=== PATIENT | female | born 1975 | race African-American/Black ===

== ENCOUNTER 2020-02-17 14:46 | Emergency (ER) | payer SELFPAY ==
--- NOTE | ~2020-02-17 | XR_ITS ---
XR wrist RT min 3V 02/17/2020 15:02 INDICATION: Status post fall. Right wrist and navicular pain. PROCEDURE: 4 views right wrist COMPARISON: No prior studies for comparison. FINDINGS: Fracture, dislocation or subluxation is not identified. The soft tissues appear within norm al limits. No foreign bodies are identified. IMPRESSION: 1: NO ACUTE BONE OR JOINT ABNORMALITY IDENTIFIED. Reviewed, dictated and finalized at location A.
[2020-02-17 14:49] VITALS: BP 154/99; PULSE 84; RESP 18; TEMP 36.4; O2SAT 100
--- NOTE | 2020-02-17 15:04 | ED.GENADULT ---
HPI - General Adult General Chief complaint: Extremity Injury, Upper Stated complaint: right wrist pain Time Seen by Provider: 02/17/20 14:48 Source: patient Mode of arrival: ambulatory Limitations: no limitations History of Present Illness HPI narrative: Patient is a 44-year-old female who presents to emergency department for evaluation of right wrist injury that occurred last night patient fell onto an outstretched right wrist has since had moderate aching pain of the wrist joint worse with activity and movement patient denies other injuries or complaints presents with Spencer wrap in place Related Data Allergies Allergy/AdvReac Type Severity Reaction Status Date / Time No Known Allergies Allergy Verified 02/17/20 14:53 Review of Systems Review of Systems: Narrative: CONSTITUTIONAL: Denies fever, chills, or sweats. SKIN: Denies bruising or swelling MUSCULOSKELETAL: Denies back pain, joint pain, or myalgia. NEUROLOGIC: Denies numbness, or weakness. PMFSH Social History Social History Gender identity (if verbalized by the patient): Female Exam Narrative: Exam Narrative: GENERAL: Well-appearing, well-nourished, and in no acute distress. HEAD: Normocephalic, atraumatic. EYES: PERRLA and EOMI. ENT: Nares clear, no rhinorrhea or epistaxis. Mucous membranes moist. EXTREMITIES: Normal range of motion. No edema. Tenderness of the right wrist joint no deformity noted SKIN: Warm, dry, no rash. NEURO: No focal deficits. Alert and oriented x3. Cranial nerves II through XII grossly intact. Neurovascularly intact PSYCH: Normal mood and affect. Course Course Emergency Course: Patient in the room in no distress aware of case findings treatment plan and diagnosis agreeing to follow-up as direct Vital Signs Vital signs: Vital Signs Temperature 97.6 F 02/17/20 14:49 Pulse Rate 84 02/17/20 14:49 Respiratory Rate 18 02/17/20 14:49 Blood Pressure 154/99 H 02/17/20 14:49 Pulse Oximetry 100 02/17/20 14:49 Temperature 97.6 F 02/17/20 14:49 Pulse Rate 84 02/17/20 14:49 Respiratory Rate 18 02/17/20 14:49 Blood Pressure 154/99 H 02/17/20 14:49 Pulse Oximetry 100 05/30/20 14:49 Medical Decision Making MDM Narrative Medical decision making narrative: Patients injury or pain is consistent with musculoskeletal etiology. No signs of neurological or vascular compromise on exam. Compartments and tisues are soft without signs of compartment syndrome. Pain is felt appropriate for further evaluation on an outpatient basis. Vital Signs Vital Signs: Vital Signs Temperature 97.6 F 02/17/20 14:49 Pulse Rate 84 02/17/20 14:49 Respiratory Rate 18 02/17/20 14:49 Blood Pressure 154/99 H 02/17/20 14:49 Pulse Oximetry 100 02/17/20 14:49 Temperature 97.6 F 02/17/20 14:49 Pulse Rate 84 02/17/20 14:49 Respiratory Rate 18 02/17/20 14:49 Blood Pressure 154/99 H 02/17/20 14:49 Pulse Oximetry 100 02/17/20 14:49 Discharge Plan Discharge Clinical Impression: Sprain and strain of wrist Patient Disposition: Home, Self-Care Condition: Stable Instructions: Antibiotic Form, Wrist Sprain (ED) Additional Instructions: Follow-up with primary care in the next 7 days for reevaluation Return if symptoms worsen or concerns or any increase in redness swelling pain fever over 100.5 or any loss of feeling or function in the extremity normally take medications as directed Follow patient education sheets Prescriptions: New ibuprofen [IBU] 600 mg tablet 600 mg PO QID PRN (Reason: pain) Qty: 7 RF: 0 Follow-up/Referrals: PHYSICIAN,[facility] [facility]PER [Primary Care Provider] - Faustino Marcano MD [Physician] -
== END 2020-02-17 15:43 | disposition home or self-care (01) ==
PROVIDERS: Emergency Provider Emergency Medicine
DX: S63.501A Unspecified sprain of right wrist, initial encounter (principal); S66.911A Strain of unspecified muscle, fascia and tendon at wrist and hand level, right hand, initial encounter; W19.XXXA Unspecified fall, initial encounter
CPT/HCPCS: 73110; 99283; A4565